=== PATIENT | female | born 1965 | race Caucasian/White ===

== ENCOUNTER 2018-06-21 13:30 | Emergency (ER) | payer OTHER ==
[~2018-06-21] VITALS: Ht 165.1 cm; Wt 74.4 kg
[~2018-06-21 13:30] MED LIST: NORVASC5 MG; ZYRTEC5 MG
[2018-06-21] MEDS ORDERED: PROTONIX40 M1 (13:49)
[2018-06-21] MEDS ORDERED: LIPITOR20 MG (13:49)
== END 2018-06-21 17:56 | disposition home or self-care (01) ==
LOC: ER 13:30
DX: R51 Headache (principal); M54.2 Cervicalgia

== ENCOUNTER 2024-08-17 22:30 | Emergency (ER) | payer OTHER ==
[~2024-08-17] VITALS: Ht 165.1 cm; Wt 72.6 kg
[~2024-08-17 22:30] MED LIST changes: +LIPITOR20 MG; +PROTONIX40 M1
[2024-08-17] MEDS ORDERED: LANSOPRAZOLE30 MG PO (22:46)
[2024-08-18] MEDS ORDERED: cloNIDine HCL 0.2 MG TABLET PO STA (04:23)
[2024-08-18] MEDS ORDERED: CLONIDINE HCL 0.1 MG TABLET PO ONE (04:33)
[2024-08-18 05:20] LABS: CALCIUM 9.4 mg/dL (8.5-10.1); CREATININE SERUM 0.74 mg/dL (0.55-1.02); GFR 80.05; POTASSIUM 3.66 mEq/L (3.5-5.1)
== END 2024-08-18 05:58 | disposition home or self-care (01) ==
LOC: ER 22:33
DX: I10 Essential (primary) hypertension (principal)